=== PATIENT | male | born 1990 | race African-American/Black ===

== ENCOUNTER 2017-11-14 19:10 | Emergency (ER) | payer OTHER ==
[~2017-11-14] VITALS: Ht 182.9 cm; Wt 63.0 kg
[2017-11-14 19:33] VITALS: BP 128/71
[2017-11-14 20:09] LABS: CLARITY URINE CLEAR (CLEAR); COLOR URINE YELLOW (YELLOW); KETONES URINE NEGATIVE (NEGATIVE); LEUKOCYTE ESTERASE URINE 2+ (NEGATIVE); NITRITE URINE NEGATIVE (NEGATIVE); OCCULT BLOOD URINE NEGATIVE (NEGATIVE); PROTEIN URINE NEGATIVE (NEGATIVE)
[2017-11-14] MEDS ORDERED: CEFTRIAXONE SODIUM 250 MG/VIAL IM ONE (20:45)
[2017-11-15] MEDS ORDERED: AZITHROMYCIN 500 MG TABLET PO SCH (09:00)
== END 2017-11-14 22:30 | disposition left against medical advice (07) ==
LOC: ER 22:19
DX: N34.2 Other urethritis (principal)
CPT/HCPCS: 81003; 87086; 99284